=== PATIENT | female | born 1965 | race Caucasian/White ===

== ENCOUNTER 2017-11-29 08:00 | Outpatient (CLI) | payer OTHER | END 2017-11-29 08:01 | disposition home or self-care (01) | LOC: LAB.WCP 08:00 | PROVIDERS: ATTEND Physician Assistant Medical | DX: J02.9 Acute pharyngitis, unspecified (principal) | CPT/HCPCS: 87070 ==

== ENCOUNTER 2018-08-13 21:16 | Emergency (ER) | payer OTHER ==
[2018-08-13] MEDS ORDERED: MAGNESIUM SULFATE 2 GRAM 2 GM/50 ML BAG IV ONE (21:45)
[2018-08-13] MEDS ORDERED: METOPROLOL 5 MG/5 ML VIAL IVP STA (21:45)
--- NOTE | 2018-08-13 21:47 | ED Physician Documentation ---
PD HPI DYSPNEA - Stated complaint Stated Complaint: SOA/CP - Chief complaint Chief Complaint: Cardiac - History obtained from History obtained from: Patient, Family - History of Present Illness Timing - onset: Today Timing - onset during: Rest Timing - duration: Minutes Timing - details: Abrupt onset, Still present Inciting event(s): URI Improved by: Rest Worsened by: Coughing, Other (INSPIRATION) Associated symptoms: Fever, Cough, Wheezing, Chest pain / discomfort. No: Hemoptysis, Palpitations, Diaphoresis, Bilateral edema, Unilateral edema Similar symptoms before: Has not had sx before Recently seen: Not recently seen - Additional information Additional information: 53-year-old female with history of hypertension fibromyalgia and restless leg syndrome has developed a cough and congestion over the past week and today while she was sitting on the couch she had the sudden onset of shortness of breath and left-sided chest pain. She states that it feels like something is sitting on her chest. She states it is difficult to get a full deep breath secondary to this and that she was breathing well right before this happened. She did get up to go into her car and states that when she did this she did not have an increase in her symptoms. She does have an increase in her symptoms when she takes a deep breath. The patient states she has been noncompliant with her blood pressure medications for more than 2 months. Review of Systems Constitutional: reports: Fever, Chills, Myalgias, Fatigue. denies: Sweats Eyes: denies: Decreased vision Ears: denies: Ear pain Nose: reports: Rhinorrhea / runny nose, Congestion Throat: denies: Sore throat Cardiac: reports: Chest pain / pressure. 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 - Present Medications Home Medications: Ambulatory Orders Medication Instructions Recorded Confirmed RX: Cyclobenzaprine [Flexeril] 10 mg PO DAILY PRN 05/11/14 02/22/16 RX: Fluticasone [Flonase] 50 mcg NS BID 05/11/14 02/22/16 RX: Pramipexole [Mirapex] 0.125 mg PO QPM 05/11/14 02/22/16 RX: traZODone [Desyrel] 50 mg PO QPM 05/11/14 02/22/16 Cholecalciferol (Vitamin D3) 5,000 unit PO DAILY 02/22/16 02/22/16 [Vitamin D3] RX: Albuterol Sulf [Ventolin Hfa 1 - 2 puffs INH Q4HR PRN #1 inhaler 08/14/18 Inhaler] RX: predniSONE [Deltasone] 10 mg PO DAILY #26 tablet 08/14/18 - Allergies Allergies/Adverse Reactions: Allergies Allergy/AdvReac Type Severity Reaction Status Date / Time Tetracyclines Allergy Rash Verified 08/13/18 21:26 Penicillins AdvReac Intermediate Rash Verified 08/13/18 21:26 PD ED PE NORMAL - Vitals Vital signs reviewed: Yes (tachypneic) - General General: Alert and oriented X 3, Well developed/nourished - HEENT HEENT: Atraumatic, PERRL, EOMI, Ears normal, Other (dry mucous membranes ) - Neck Neck: Supple, no meningeal sign, No bony TTP - Cardiac Cardiac: No murmur, Other (tachy to 110) - Respiratory Respiratory: Other (tachypneic with diminished breath sounds and no rhonchi or rales) - Abdomen Abdomen: Soft, Non tender - Back Back: No CVA TTP, No spinal TTP - Derm Derm: Normal color, Warm and dry, No rash - Extremities Extremities: No deformity, No tenderness to palpate, No edema, No calf tenderness / cord - Neuro Neuro: Alert and oriented X 3, equipment oiler 2-12 intact, No motor deficit, No sensory deficit, Normal speech Eye Opening: Spontaneous Motor: Obeys Commands Verbal: Oriented GCS Score: 15 - Psych Psych: Normal mood, Normal affect Results - Vitals Vitals: Vital Signs - 24 hr 08/13/18 08/13/18 08/13/18 21:20 21:29 21:55 Heart Rate 99 75 Respiratory 30 H 21 Rate Blood Pressure 197/105 H 145/98 H O2 Saturation 100 95 08/13/18 08/13/18 08/14/18 23:04 23:36 00:11 Heart Rate 75 81 88 Respiratory 24 18 24 Rate Blood Pressure 151/110 H 160/108 H O2 Saturation 95 96 Oxygen O2 Source Room air - EKG (time done) 2123 Rate: Rate (enter#) (93) Rhythm: NSR Intervals: Prolonged QT (.514) QRS: LVH Ischemia: Q waves, Non specific changes (T wave in inferior leads are flat) Compare to prior EKG: Old EKG unavailable Computer interpretation: Agree with computer - Labs Labs: Laboratory Tests 08/13/18 08/13/18 08/13/18 21:23 21:23 21:23 WBC 13.7 H RBC 5.00 Hgb 15.4 Hct 43.3 MCV 86.5 MCH 30.7 MCHC 35.5 RDW 14.0 Plt Count 346 MPV 8.4 Neut # (Auto) Not Reportable Lymph # (Auto) Not Reportable Elk # (Auto) Not Reportable Eos # (Auto) Not Reportable Baso # (Auto) Not Reportable Absolute Nucleated RBC Not Reportable Total Counted 100 Band Neuts % (Manual) 0 Reactive Lymphs % (Man) 11 Abnorm Lymph % (Manual) 0 Nucleated RBC % Not Reportable Neutrophils # (Manual) 8.1 H Lymphocytes # (Manual) 4.8 H Monocytes # (Manual) 0.3 Eosinophils # (Manual) 0.5 Basophils # (Manual) 0.0 Differential Comment MANUAL DIFFERENTIAL Platelet Estimate NORMAL (130-450,000) Platelet Morphology NORMAL APPEARANCE RBC Morph Micro Appear NORMAL APPEARANCE Sodium 136 Potassium 3.2 L Chloride 99 L Carbon Dioxide 25 Anion Gap 12.0 BUN 8 Creatinine 0.8 Estimated GFR (MDRD) 75 L Glucose 98 Calcium 9.1 Total Bilirubin < 0.2 L AST 20 ALT 11 Alkaline Phosphatase 92 Troponin I < 0.04 Total Protein 7.7 Albumin 3.9 Globulin 3.8 Albumin/Globulin Ratio 1.0 Lipase 35 Urine Color Urine Clarity Urine pH Ur Specific Colbert Urine Protein Urine Glucose (UA) Urine Ketones Urine Occult Blood Urine Nitrite Urine Bilirubin Urine Urobilinogen Ur Leukocyte Esterase Ur Microscopic Review Urine Culture Comments 08/13/18 22:10 WBC RBC Hgb Hct MCV MCH MCHC RDW Plt Count MPV Neut # (Auto) Lymph # (Auto) Elk # (Auto) Eos # (Auto) Baso # (Auto) Absolute Nucleated RBC Total Counted Band Neuts % (Manual) Reactive Lymphs % (Man) Abnorm Lymph % (Manual) Nucleated RBC % Neutrophils # (Manual) Lymphocytes # (Manual) Monocytes # (Manual) Eosinophils # (Manual) Basophils # (Manual) Differential Comment Platelet Estimate Platelet Morphology RBC Morph Micro Appear Sodium Potassium Chloride Carbon Dioxide Anion Gap BUN Creatinine Estimated GFR (MDRD) Glucose Calcium Total Bilirubin AST ALT Alkaline Phosphatase Troponin I Total Protein Albumin Globulin Albumin/Globulin Ratio Lipase Urine Color YELLOW Urine Clarity CLEAR Urine pH 7.0 Ur Specific Colbert 1.010 Urine Protein NEGATIVE Urine Glucose (UA) NEGATIVE Urine Ketones NEGATIVE Urine Occult Blood NEGATIVE Urine Nitrite NEGATIVE Urine Bilirubin NEGATIVE Urine Urobilinogen 0.2 (NORMAL) Ur Leukocyte Esterase NEGATIVE Ur Microscopic Review NOT INDICATED Urine Culture Comments NOT INDICATED - Rads (name of study) CT chest angio PE Radiology: Prelim report reviewed (Impression: Normal pulmonary CT angiogram. No pulmonary emboli.), EMP read indepedently, See rad report Procedures - IVC sono (time) 2132 Bedside IVC sono: IVC measures (cm) (1.40), IVC collapsed c insp (cm) (0.65), Euvolemia PD MEDICAL DECISION MAKING - ED course Complexity details: reviewed old records, reviewed results, re-evaluated patient, considered differential, d/w patient, d/w family ED course: 53-year-old female with a prior history of bronchitis has developed cough over the past week and tonight she had a dramatic episode of chest pain associated with shortness of breath. She arrived to the emergency department tachypneic and teary-eyed. She had significant anxiety when she arrived to the emergency department. She improved dramatically with treatment and at discharge she was breathing comfortably without pain. She did receive dexamethasone and a duo-neb treatment in the ED. I did not find evidence of infection on exam. Departure - Departure Disposition: 01 Home, Self Care Clinical Impression: Asthmatic bronchitis Qualifiers: Asthma severity: mild Asthma persistence: intermittent Asthma complication type: with acute exacerbation Qualified Code(s): J45.21 - Mild intermittent asthma with (acute) exacerbation Condition: Stable Instructions: ED Bronchitis Asthmatic Follow-Up: Lexi Clark PA-C [Primary Care Provider] - Prescriptions: RX: Albuterol Sulf [Ventolin Hfa Inhaler] 1 - 2 puffs INH Q4HR PRN #1 inhaler PRN Reason: Shortness Of Air/Wheezing RX: predniSONE [Deltasone] 10 mg PO DAILY #26 tablet Comments: Today in the Emergency Department your blood pressure was elevated. This can happen from the stress of the visit itself, from a current illness or circumstance or from uncontrolled hypertension. If you take blood pressure medications take your usual mediations, have your blood pressure re-checked in an appropriate setting and follow up any elevation with your primary care doctor. Discharge Date/Time: 08/14/18 00:24
[2018-08-13 21:51] LABS: BASOPHILS % (AUTO) 1.2 %; EOSINOPHILS % (AUTO) 1.8 %; HGB - HEMOGLOBIN 15.4 g/dL (12.0-16.0); LYMPHOCYTES % (AUTO) 41.2 %; MEAN CORPUSCULAR HEMOGLOBIN 30.7 pg (27.0-31.0); MEAN CORPUSCULAR HGB CONC 35.5 g/dL (32.0-36.0); MEAN CORPUSCULAR VOLUME 86.5 fL (81.0-99.0); MEAN PLATELET VOLUME 8.4 fL (7.9-10.8); MONOCYTES % (AUTO) 7.6 %; NEUTROPHILS % (AUTO) 48.2 %; PLT - PLATELET COUNT 346 10^3/uL (130-450); WHITE BLOOD COUNT 13.7 x10^3/uL (4.8-10.8)
[2018-08-13 21:54] LABS: ABNORMAL LYMPHS % (MANUAL) 0 %; BAND NEUTROPHILS % (MANUAL) 0 %
[2018-08-13 22:00] LABS: ALBUMIN 3.9 g/dL (3.2-5.5); ALKALINE PHOSPHATASE 92 IU/L (42-121); ALT ALANINE AMINOTRANSFERASE 11 IU/L (10-60); AST ASPARTATE AMINOTRANSFERASE 20 IU/L (10-42); BILIRUBIN,TOTAL < 0.2 mg/dL (0.2-1.0); BUN - BLOOD UREA NITROGEN 8 mg/dL (6-20); CALCIUM 9.1 mg/dL (8.5-10.3); CARBON DIOXIDE - CO2 25 mmol/L (21-32); CHLORIDE 99 mmol/L (101-111); CREATININE 0.8 mg/dL (0.4-1.0); GFR - MDRD 75 (>89); GLUCOSE 98 mg/dL (70-100); LIPASE 35 U/L (22-51); SODIUM 136 mmol/L (135-145); TOTAL PROTEIN 7.7 g/dL (6.7-8.2)
[2018-08-13] MEDS ORDERED: IOPAMIDOL-300 100 ML VIAL ONE (22:04)
[2018-08-13 22:25] LABS: BILIRUBIN,URINE NEGATIVE (NEGATIVE); GLUCOSE, URINE (UA) NEGATIVE (NEGATIVE); KETONES,URINE (UA) NEGATIVE (NEGATIVE); LEUKOCYTE ESTERASE, URINE NEGATIVE (NEGATIVE); NITRITE,URINE NEGATIVE (NEGATIVE); OCCULT BLOOD,URINE NEGATIVE (NEGATIVE); PROTEIN,URINE NEGATIVE (NEGATIVE); UROBILINOGEN,URINE 0.2 (NORMAL) E.U./dL (NORMAL)
[2018-08-13 22:29] LABS: EOSINOPHILS # (MANUAL) 0.5 10^3/uL (0-0.7); LYMPHOCYTES # (MANUAL) 4.8 10^3/uL (1.5-3.5); LYMPHOCYTES % (MANUAL) 24 %; MONOCYTES # (MANUAL) 0.3 10^3/uL (0.0-1.0); NEUTROPHILS # (MANUAL) 8.1 10^3/uL (1.5-6.6); NEUTROPHILS % (MANUAL) 59 %
[2018-08-13 22:31] LABS: DIFFERENTIAL COMMENT MANUAL DIFFERENTIAL; PLATELET ESTIMATE, MANUAL NORMAL (130-450,000) (NORMAL); PLATELET MORPHOLOGY NORMAL APPEARANCE (NORMAL); RBC MORPHOLOGY (MULTIPLE) NORMAL APPEARANCE (NORMAL)
[2018-08-13 22:32] LABS: CLARITY,URINE CLEAR (CLEAR)
[2018-08-13] MEDS ORDERED: IOPAMIDOL-300 100 ML VIAL IVP ONE (22:37)
--- NOTE | 2018-08-13 22:55 | CT Report ---
Reason: chest pain soa Procedure Date: 08/13/2018 Accession Number: [id number] / [id number] Procedure: CT - Chest Angio (PE) CPT Code: FULL RESULT: EXAM: CT ANGIOGRAM CHEST EXAM DATE: 08/13/2018 10:34 PM. CLINICAL HISTORY: Chest pain soa. COMPARISON: None. TECHNIQUE: Routine helical imaging was performed through the chest in the pulmonary arterial phase. IV Contrast: 80 ML ISOVUE 300. Reconstructions: Coronal 3-D MIP reconstructions.Sagittal and coronal. In accordance with CT protocol optimization, one or more of the following dose reduction techniques were utilized for this exam: automated exposure control, adjustment of mA and/or KV based on patient size, or use of iterative reconstructive technique. FINDINGS: Pulmonary Arteries: Diagnostic quality: Adequate through the segmental arteries. No evidence for acute or chronic pulmonary emboli. RV/LV is within normal limits. There is no interventricular septal bowing. There is no reflux of contrast material in the IVC. Lungs/Pleura: No consolidation, nodules, or edema. No effusions or pneumothorax. Mediastinum: Normal. No cardiac enlargement or adenopathy. Thoracic Aorta: Unremarkable. Upper Abdomen: Unremarkable. Other: None. IMPRESSION: Normal pulmonary CT angiogram. No pulmonary emboli. RADIA
[2018-08-13] MEDS ORDERED: POTASSIUM BICARB 25 MEQ TABLET PO STA (23:26)
[2018-08-13] MEDS ORDERED: DEXAMETHASONE 10 MG/ML VIAL PO STA (23:27)
[2018-08-13] MEDS ORDERED: IPRATROPIUM/ALBUTEROL 3 ML NEB INH STA (23:27)
[2018-08-13] MEDS ORDERED: CHERRY SYRUP 10 ML UDC PO ONE (23:31)
[2018-08-14 00:12] VITALS: BP 160/108
== END 2018-08-14 00:24 | disposition home or self-care (01) ==
LOC: ED 21:16
DX: J45.21 Mild intermittent asthma with (acute) exacerbation (principal); Z91.14 Patient's other noncompliance with medication regimen; F41.9 Anxiety disorder, unspecified; R06.82 Tachypnea, not elsewhere classified; I10 Essential (primary) hypertension
CPT/HCPCS: 36415; 71275; 80053; 81003; 83690; 84484; 85025; 93005; 94640; 96365; 96366; 99283; A9270; Q9967; 81001; 87086; 94664

== ENCOUNTER 2019-03-06 19:34 | Outpatient (CLI) | payer MEDICAID, OTHER | END 2019-03-06 19:35 | disposition critical access hospital (66) | LOC: EMS 19:34 | PROVIDERS: ATTEND Surgery | DX: R55 Syncope and collapse (principal); R41.82 Altered mental status, unspecified; R61 Generalized hyperhidrosis; R42 Dizziness and giddiness; R53.1 Weakness; R11.2 Nausea with vomiting, unspecified ==

== ENCOUNTER 2019-03-06 19:51 | Emergency (ER) | payer SELFPAY ==
--- NOTE | 2019-03-06 20:23 | ED Physician Documentation ---
PD HPI SYNCOPE - Stated complaint Stated Complaint: WEAKNESS, N/V, SYNCOPE - Chief complaint Chief Complaint: Neuro - History obtained from History obtained from: Patient - History of Present Illness Witnessed: Witnessed Timing - onset: How many hours ago (less than 1 hour MONITORING COORDINATOR), Today Duration: Minutes Preceding symptoms: Diaphoresis, Light headed. No: Headache, Chest pain Associated symptoms: Diaphoresis, Nausea / vomiting. No: Seizure, Incontinant of urine, Incontinant of stool, Headache, Vision changes, Chest pain, Palpitations, Dyspnea Injury occurred: None Pain level max: 0 Pain level now: 0 Treatment MONITORING COORDINATOR: Fluids (en route by EMS) Similar symptoms before: Other (similar symptoms last Fall without specific diagnosis) Recently seen: Not recently seen - Additional information Additional information: while seated at dinner tonight, patient became lightheaded, diaphoretic, had generalized weakness and felt like she was going to pass out. Patient told her daughter, also seated at the table, that she felt she was going to pass out. Patient says she did not "completely go out" (per patient), but daughter describes period of unresponsiveness (not verbally responding) and weakness to the point of having to be held up to prevent her from falling out of chair. By the time of this evaluation, she is asymptomatic. Review of Systems Constitutional: reports: Sweats. denies: Fever, Chills Eyes: reports: Reviewed and negative Ears: reports: Reviewed and negative Cardiac: reports: Reviewed and negative Respiratory: reports: Reviewed and negative GI: reports: Nausea, Vomiting. denies: Abdominal Pain, Constipation, Diarrhea : denies: Dysuria, Frequency Musculoskeletal: reports: Reviewed and negative Neurologic: reports: Generalized weakness (resolved (was prior to syncope)), Syncope. 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 - Present Medications Home Medications: Ambulatory Orders Medication Instructions Recorded Confirmed Cyclobenzaprine [Flexeril] 10 mg PO DAILY PRN 05/11/14 02/22/16 Fluticasone [Flonase] 50 mcg NS BID 05/11/14 02/22/16 Pramipexole [Mirapex] 0.125 mg PO QPM 05/11/14 02/22/16 traZODone [Desyrel] 50 mg PO QPM 05/11/14 02/22/16 Cholecalciferol (Vitamin D3) 5,000 unit PO DAILY 02/22/16 02/22/16 [Vitamin D3] Albuterol Sulf [Ventolin Hfa 1 - 2 puffs INH Q4HR PRN #1 inhaler 08/14/18 Inhaler] predniSONE [Deltasone] 10 mg PO DAILY #26 tablet 08/14/18 - Allergies Allergies/Adverse Reactions: Allergies Allergy/AdvReac Type Severity Reaction Status Date / Time Tetracyclines Allergy Rash Verified 03/06/19 19:58 - Social History Does the pt smoke?: Yes Smoking Status: Current every day smoker Does the pt drink ETOH?: Yes Does the pt have substance abuse?: No PD ED PE NORMAL - Vitals Vital signs reviewed: Yes - General General: Alert and oriented X 3, No acute distress, Well developed/nourished - HEENT HEENT: PERRL, EOMI, Moist mucous membranes - Neck Neck: Supple, no meningeal sign - Cardiac Cardiac: RRR, No murmur, No gallop, No rub - Respiratory Respiratory: No respiratory distress, Clear bilaterally - Abdomen Abdomen: Soft, Non tender - Derm Derm: Normal color, Warm and dry - Extremities Extremities: No edema - Neuro Neuro: Alert and oriented X 3, laboratory geneticist 2-12 intact, No motor deficit, No sensory deficit, Normal speech Eye Opening: Spontaneous Motor: Obeys Commands Verbal: Oriented GCS Score: 15 Results - Vitals Vitals: Vital Signs - 24 hr 03/06/19 03/06/19 03/06/19 19:58 20:03 21:45 Temperature 36.7 C Heart Rate 95 95 80 Respiratory 16 18 16 Rate Blood Pressure 126/71 125/71 144/89 H O2 Saturation 93 93 97 Oxygen O2 Source Room air - EKG (time done) No standard instances Rate: Rate (enter#) (82) Rhythm: NSR [place]: Normal Intervals: Prolonged QT QRS: LVH Ischemia: Q waves (II, III, aVF) Compare to prior EKG: Unchanged from prior EKG (08/13/18) - Labs Labs: Laboratory Tests 05/17/19 05/17/19 05/17/19 20:35 20:35 20:35 WBC 17.6 H RBC 4.56 Hgb 13.3 Hct 39.7 MCV 87.2 MCH 29.1 MCHC 33.4 RDW 13.9 Plt Count 370 MPV 8.3 Neut # (Auto) 13.4 H Lymph # (Auto) 2.8 [place]phill # (Auto) 1.3 H Eos # (Auto) 0.1 Baso # (Auto) 0.1 Absolute Nucleated RBC 0.01 Nucleated RBC % 0.1 Sodium 136 Potassium 3.2 L Chloride 96 L Carbon Dioxide 28 Anion Gap 12.0 BUN 9 Creatinine 1.3 H Estimated GFR (MDRD) 43 L Glucose 150 H Calcium 8.6 Troponin I < 0.04 - Rads (name of study) chest xray Radiology: Prelim report reviewed, See rad report PD MEDICAL DECISION MAKING - ED course Complexity details: reviewed results, re-evaluated patient, considered differential, d/w patient ED course: On reevaluation after tests resulted, patient remains asymptomatic. Results d/w patient and instructed to f/u with PMD. Departure - Departure Disposition: 01 Home, Self Care Clinical Impression: Syncope, Hypokalemia Condition: Good Instructions: ED Potassium Deficiency, ED Fainting Unkn Cause Comments: Your white blood cell count, creatinine, and blood sugar were all slightly elevated tonight, and your potassium was a little low. None of these findings are alarming, but you should discuss these findings with your doctor, as they might recommend further testing regarding these abnormalities. Discharge Date/Time: 03/06/19 21:45
[2019-03-06 20:43] LABS: BASOPHILS # (AUTO) 0.1 10^3/uL (0.0-0.1); BASOPHILS % (AUTO) 0.6 %; EOSINOPHILS # (AUTO) 0.1 10^3/uL (0.0-0.7); EOSINOPHILS % (AUTO) 0.5 %; HGB - HEMOGLOBIN 13.3 g/dL (12.0-16.0); LYMPHOCYTES # (AUTO) 2.8 10^3/uL (1.5-3.5); LYMPHOCYTES % (AUTO) 15.9 %; MEAN CORPUSCULAR HEMOGLOBIN 29.1 pg (27.0-31.0); MEAN CORPUSCULAR HGB CONC 33.4 g/dL (32.0-36.0); MEAN CORPUSCULAR VOLUME 87.2 fL (81.0-99.0); MEAN PLATELET VOLUME 8.3 fL (7.9-10.8); MONOCYTES # (AUTO) 1.3 10^3/uL (0.0-1.0); MONOCYTES % (AUTO) 7.2 %; NEUTROPHILS # (AUTO) 13.4 10^3/uL (1.5-6.6); NEUTROPHILS % (AUTO) 75.8 %; PLT - PLATELET COUNT 370 10^3/uL (130-450); RED BLOOD COUNT 4.56 10^6/uL (4.20-5.40); RED CELL DISTRIBUTION WIDTH 13.9 % (12.0-15.0); WHITE BLOOD COUNT 17.6 x10^3/uL (4.8-10.8)
[2019-03-06 20:51] LABS: CALCIUM 8.6 mg/dL (8.5-10.3); CREATININE 1.3 mg/dL (0.4-1.0)
--- NOTE | 2019-03-06 20:53 | XRAY Report ---
Reason: syncope Procedure Date: 03/06/2019 Accession Number: [id number] / [id number] Procedure: XR - Chest 2 View X-Ray CPT Code: 56652 FULL RESULT: EXAM: CHEST RADIOGRAPHY EXAM DATE: 03/06/2019 08:47 PM. CLINICAL HISTORY: Syncope. COMPARISON: 11/27/2011 7:05 AM. TECHNIQUE: 2 views. FINDINGS: Lungs/Pleura: Mild left basilar atelectasis and scarring. No focal opacities evident. No pleural effusion. No pneumothorax. Normal volumes. Mediastinum: Heart and mediastinal contours are unremarkable. Other: None. IMPRESSION: Normal 2-view chest radiography. RADIA
[2019-03-06] MEDS ORDERED: POTASSIUM CHLORIDE 20 MEQ TABLET PO STA (21:28)
[2019-03-06 21:47] VITALS: BP 144/89
== END 2019-03-06 21:45 | disposition home or self-care (01) ==
LOC: EDUNIT# → ED 19:51
DX: R55 Syncope and collapse (principal); E87.6 Hypokalemia; I45.81 Long QT syndrome; I10 Essential (primary) hypertension; F17.200 Nicotine dependence, unspecified, uncomplicated
CPT/HCPCS: 36415; 71046; 80048; 84484; 85025; 93005; 99283; 99284; A9270

== ENCOUNTER 2019-03-25 09:04 | Outpatient (CLI) | payer MEDICAID ==
[~2019-03-25 09:04] MED LIST: ALBUTEROL NEB 2.5 MG/3 ML INH SCH
== END 2019-03-25 09:05 | disposition home or self-care (01) ==
LOC: RT 09:04
DX: R06.02 Shortness of breath (principal)
CPT/HCPCS: 94060; 94729

== ENCOUNTER 2019-04-27 12:15 | Outpatient (CLI) | payer MEDICAID ==
[2019-04-27] MEDS ORDERED: IOVERSOL 320 100 ML VIAL IVP ONE ×2 (12:41→15:50)
--- NOTE | 2019-04-27 14:05 | CT Report ---
Reason: LUNG MASS, SMOKER Procedure Date: 04/27/2019 Accession Number: [id number] / [id number] Procedure: CT - CHEST W CPT Code: FULL RESULT: EXAM: CT CHEST EXAM DATE: 04/27/2019 01:02 PM. CLINICAL HISTORY: LUNG MASS, SMOKER. COMPARISONS: CHEST ANGIO 08/13/2018 10:21 PM CHEST 2 VIEW 03/06/2019 8:41 PM. TECHNIQUE: Routine helical CT imaging was performed through the chest. IV contrast: 80 cc Optiray 320. Reconstructions: Coronal and sagittal. In accordance with CT protocol optimization, one or more of the following dose reduction techniques were utilized for carotids are good at this exam: automated exposure control, adjustment of mA and/or KV based on patient size, or use of iterative reconstructive technique. FINDINGS: Lungs/Pleura: There is no consolidation or effusion. No suspicious noncalcified nodules are seen. There is no evidence of subpleural reticulation or architectural distortion. No central airway abnormalities. No pneumothorax. Mediastinum: Heart size is within normal limits. There are no enlarged axillary, supraclavicular, mediastinal, or hilar lymph nodes. Bones: Unremarkable. Visualized Abdomen: There is a heterogeneous hypodense mass measuring 2.5 cm in diameter within segment 6 of the liver (image 60 series 4). The visualized portions of the upper abdominal organs demonstrate no acute abnormalities. Other: None. IMPRESSION: 1. No acute or chronic pulmonary CT process. 2. Normal heart size. No enlarged thoracic lymph nodes. 3. There is a 2.5 cm nodular hypodensity within segment 6 of the liver. There is probably represents a hemangioma. This could be confirmed with nonemergent hepatic MRI as indicated. RADIA
== END 2019-04-27 12:16 | disposition home or self-care (01) ==
LOC: DI 12:15
PROVIDERS: ATTEND Physician Assistant
DX: F17.200 Nicotine dependence, unspecified, uncomplicated (principal); R91.8 Other nonspecific abnormal finding of lung field; R16.0 Hepatomegaly, not elsewhere classified
CPT/HCPCS: 71260; Q9967

== ENCOUNTER 2019-05-07 13:09 | Outpatient (CLI) | payer MEDICAID ==
[2019-05-07] MEDS ORDERED: GADOBUTROL 10 MMOL/10 ML VIAL IVP ONE (14:46)
--- NOTE | 2019-05-08 05:41 | MRI Report ---
Reason: HEMANGIOMA, HEPATIC Procedure Date: 05/07/2019 Accession Number: [id number] / [id number] Procedure: MRI - Abdomen W/WO CPT Code: FULL RESULT: EXAM: MR ABDOMEN WITH AND WITHOUT CONTRAST (MR LIVER) EXAM DATE: 05/07/2019 02:48 PM. CLINICAL HISTORY: Liver lesion seen on the prior exam, further assessment and characterization. COMPARISON: CHEST W/ 04/27/2019 12:55 PM, CHEST ANGIO 08/13/2018 10:21 PM. TECHNIQUE: Multiplanar breath-hold T1, T2, and DWI sequences obtained through the abdomen on an MR scanner. Images obtained before and after administration of 7 mL Gadavist intravenous contrast. Multiphase postcontrast images obtained of the liver and abdomen. FINDINGS: ABDOMEN: Liver: The recent prior CT demonstrated abnormality within the posterior portion of the liver is again seen, having a lobulated T2 hyperintense appearance. This is within segment-7, measuring 2.6 x 2.1 cm (image 196 series 301). Enhancement characteristics are consistent with that of a cavernous hemangioma. There is an additional 8 mm T2 hyperintense focus within the posterolateral subcapsular portion of liver segment-7 (image 24 series 501). This lesion as well represents a small cavernous hemangioma. There is an adjacent hepatic to portal venous shunt within the subcapsular aspect of liver segment-7 (image 67 series 1301). There are no suspicious appearing hepatic abnormalities noted at this time. Liver is morphologically normal. Stomach/Distal Esophagus: No significant abnormality. Gallbladder: No significant abnormality. Bile Ducts: No significant abnormality. Pancreas: No significant abnormality. Spleen: No significant abnormality. Kidneys: No suspicious solid appearing lesion. No hydronephrosis. Adrenals: No significant abnormality. Bowel: No obstruction. Average fecal residual. Lymph Nodes: No pathologically enlarged nodes. Vasculature: Normal caliber aorta. Fluid: No significant free fluid. Abdominal Wall: No significant abnormality. Other: No significant abnormality. BONES: No suspicious bony lesions. LOWER CHEST: No significant consolidation or effusion. IMPRESSION: 1. The recent CT demonstrated abnormality corresponds to a cavernous hemangioma within liver segment-7, measuring 2.6 x 2.1 cm. 2. Adjacent additional 8 mm cavernous hemangioma within the posterolateral portion of liver segment-7. RADIA
== END 2019-05-07 13:10 | disposition home or self-care (01) ==
LOC: DI 13:09
PROVIDERS: ATTEND Physician Assistant
DX: D18.03 Hemangioma of intra-abdominal structures (principal)
CPT/HCPCS: 74183; A9585

== ENCOUNTER 2021-01-12 16:56 | Outpatient (CLI) | payer MEDICAID ==
[2021-01-12 20:48] LABS: BILIRUBIN,URINE NEGATIVE (NEGATIVE); CLARITY,URINE CLEAR (CLEAR); GLUCOSE, URINE (UA) NEGATIVE (NEGATIVE); KETONES,URINE (UA) NEGATIVE (NEGATIVE); LEUKOCYTE ESTERASE, URINE NEGATIVE (NEGATIVE); NITRITE,URINE NEGATIVE (NEGATIVE); OCCULT BLOOD,URINE NEGATIVE (NEGATIVE); PROTEIN,URINE NEGATIVE (NEGATIVE); UROBILINOGEN,URINE 0.2 (NORMAL) E.U./dL (NORMAL)
[2021-01-12 20:54] LABS: BACTERIA,URINE None Seen /HPF (None Seen); RBC,URINE None Seen /HPF (0-5); SQUAMOUS EPITHELIAL CELL,UR RARE Squamous (<= Few); WBC,URINE 0-3 /HPF (0-5)
== END 2021-01-12 23:59 | disposition home or self-care (01) ==
LOC: LAB.R 16:56
PROVIDERS: ATTEND Physician Assistant Medical
DX: R31.9 Hematuria, unspecified (principal)
CPT/HCPCS: 81001; 87086

== ENCOUNTER 2021-03-24 08:00 | Outpatient (CLI) | payer MEDICAID ==
[2021-03-24 12:27] LABS: BASOPHILS # (AUTO) 0.1 10^3/uL (0.0-0.1); BASOPHILS % (AUTO) 0.6 %; EOSINOPHILS # (AUTO) 0.2 10^3/uL (0.0-0.7); EOSINOPHILS % (AUTO) 1.3 %; HCT - HEMATOCRIT 41.1 % (37.0-47.0); HGB - HEMOGLOBIN 13.7 g/dL (12.0-16.0); LYMPHOCYTES # (AUTO) 5.3 10^3/uL (1.5-3.5); LYMPHOCYTES % (AUTO) 43.6 %; MEAN CORPUSCULAR HEMOGLOBIN 29.8 pg (27.0-31.0); MEAN CORPUSCULAR HGB CONC 33.3 g/dL (32.0-36.0); MEAN CORPUSCULAR VOLUME 89.5 fL (81.0-99.0); MEAN PLATELET VOLUME 10.7 fL (7.9-10.8); MONOCYTES # (AUTO) 1.1 10^3/uL (0.0-1.0); MONOCYTES % (AUTO) 8.8 %; NEUTROPHILS # (AUTO) 5.6 10^3/uL (1.5-6.6); NEUTROPHILS % (AUTO) 45.5 %; PLT - PLATELET COUNT 402 10^3/uL (130-450); RED BLOOD COUNT 4.59 10^6/uL (4.20-5.40); RED CELL DISTRIBUTION WIDTH 13.4 % (12.0-15.0); WHITE BLOOD COUNT 12.2 x10^3/uL (4.8-10.8)
[2021-03-24 12:34] LABS: SLIDE REVIEW? Indicated
[2021-03-24 12:43] LABS: ALBUMIN/GLOBULIN RATIO 1.3 (1.0-2.2); ALKALINE PHOSPHATASE 64 IU/L (42-121); ALT ALANINE AMINOTRANSFERASE 11 IU/L (10-60); AST ASPARTATE AMINOTRANSFERASE 18 IU/L (10-42); BILIRUBIN,TOTAL 0.5 mg/dL (0.2-1.0); BUN - BLOOD UREA NITROGEN 8 mg/dL (6-20); CALCIUM 9.4 mg/dL (8.5-10.3); CARBON DIOXIDE - CO2 30 mmol/L (21-32); CHLORIDE 96 mmol/L (101-111); CHOL/HDL RATIO 7.9 (<4.4); CHOLESTEROL 261 mg/dL; CREATININE 0.8 mg/dL (0.4-1.0); GFR - MDRD 74 (>89); GLUCOSE 99 mg/dL (70-100); HDL CHOLESTEROL 33 mg/dL; LDL CHOLESTEROL,CALCULATED 166 mg/dL; POTASSIUM 3.6 mmol/L (3.5-5.0); SODIUM 137 mmol/L (135-145); TOTAL PROTEIN 7.1 g/dL (6.7-8.2); TRIGLYCERIDES 310 mg/dL; VLDL CHOLESTEROL 62 mg/dL
[2021-03-24 12:50] LABS: THYROID STIMULATING HORMONE 1.02 uIU/mL (0.34-5.60)
[2021-03-24 13:20] LABS: DIFFERENTIAL COMMENT MANUAL=AUTO DIFF; PLATELET ESTIMATE, MANUAL NORMAL (130-450,000) (NORMAL); PLATELET MORPHOLOGY NORMAL APPEARANCE (NORMAL); RBC MORPHOLOGY (MULTIPLE) NORMAL APPEARANCE (NORMAL); WBC MORPHOLOGY (MULTIPLE) NORMAL APPEARANCE (NORMAL)
== END 2021-03-24 23:59 | disposition home or self-care (01) ==
LOC: LAB.WCP 08:00
PROVIDERS: ATTEND Physician Assistant Medical
DX: Z00.00 Encounter for general adult medical examination without abnormal findings (principal); R31.9 Hematuria, unspecified
CPT/HCPCS: 36415; 80053; 80061; 81001; 83721; 84443; 85025; 87086

== ENCOUNTER 2022-07-24 10:49 | Outpatient (CLI) | payer MEDICARE, MEDICAID ==
--- NOTE | 2022-07-24 17:44 | DEXA Report ---
PROCEDURE: Dexa Spine and/or Hip INDICATIONS: POST MENOPAUSAL TECHNIQUE: Dual energy x-ray absorptiometry (DXA) was performed on a Cardoz System. Regions measur ed are the AP Spine, femoral neck, and if needed forearm. COMPARISON: 04/27/2016. FINDINGS: Lumbar Spine: Bone Mineral Density 0.922 g/cm/cm,T score -2.2. There is interval 4.3% decrease in total lumbar s pine bone mineral density. Left Hip: Bone Mineral Density 0.709 g/cm/cm,T score -2.4. There is interval 8.4% decrease in left total hip b one mineral density. Left Femoral Neck: Bone Mineral Density 0.678 g/cm/cm, T score -2.6. (T score greater or equal to -1.0: NORMAL) (T score from -1.1 to -2.4: OSTEOPENIA) (T score less than or equal to -2.5 to: OSTEOPOROSIS) Impression: Osteoporosis. Patients with diagnosis of osteoporosis or osteopenia should have regular bone mineral density assess ment. For those eligible for Medicare, routine testing is allowed once every 2 years. Testing frequ ency can be increased for patients who have rapidly progressing disease or for those who are receivin g medical therapy to restore bone mass. Reviewed by: Eros Silveira MD on 07/24/2022 5:43 PM PDT Approved by: Eros Silveira MD on 07/24/2022 5:43 PM PDT Station ID: [id number]
== END 2022-07-24 10:50 | disposition home or self-care (01) ==
LOC: DI 10:49
PROVIDERS: ATTEND Physician Assistant
DX: M81.0 Age-related osteoporosis without current pathological fracture (principal)

== ENCOUNTER 2022-07-24 10:53 | Outpatient (CLI) | payer MEDICARE, MEDICAID ==
--- NOTE | 2022-07-24 16:35 | XRAY Report ---
PROCEDURE: Knee 3 View BILAT INDICATIONS: KNEE PAIN, BILATERAL TECHNIQUE: 3 views of each knee were acquired. COMPARISON: None. FINDINGS: Bones: No acute fractures or dislocations. No suspicious bony lesions. There is mild narrowing of the medial and lateral femorotibial compartment joint spaces. Soft tissues: No joint effusion. No suspicious soft tissue calcifications. IMPRESSION: Mild bilateral osteoarthrosis. Reviewed by: William Kuo MD on 07/24/2022 4:34 PM PDT Approved by: William Kuo MD on 07/24/2022 4:34 PM PDT Station ID: [id number]
== END 2022-07-24 10:54 | disposition home or self-care (01) ==
LOC: DI 10:53
PROVIDERS: ATTEND Physician Assistant
DX: M17.0 Bilateral primary osteoarthritis of knee (principal)

== ENCOUNTER 2022-08-02 08:44 | Outpatient (CLI) | payer MEDICARE, MEDICAID ==
[2022-08-02 09:06] LABS: BASOPHILS # (AUTO) 0.1 10^3/uL (0.0-0.1); EOSINOPHILS # (AUTO) 0.1 10^3/uL (0.0-0.7); EOSINOPHILS % (AUTO) 1.4 %; HCT - HEMATOCRIT 41.9 % (37.0-47.0); HGB - HEMOGLOBIN 13.6 g/dL (12.0-16.0); LYMPHOCYTES # (AUTO) 3.5 10^3/uL (1.5-3.5); LYMPHOCYTES % (AUTO) 43.6 %; MEAN CORPUSCULAR HGB CONC 32.5 g/dL (32.0-36.0); MEAN CORPUSCULAR VOLUME 89.3 fL (81.0-99.0); MEAN PLATELET VOLUME 10.1 fL (7.9-10.8); MONOCYTES # (AUTO) 0.7 10^3/uL (0.0-1.0); MONOCYTES % (AUTO) 8.4 %; NEUTROPHILS # (AUTO) 3.6 10^3/uL (1.5-6.6); NEUTROPHILS % (AUTO) 45.3 %; PLT - PLATELET COUNT 320 10^3/uL (130-450); RED BLOOD COUNT 4.69 10^6/uL (4.20-5.40); RED CELL DISTRIBUTION WIDTH 13.5 % (12.0-15.0)
[2022-08-02 09:24] LABS: ALBUMIN 4.1 g/dL (3.2-5.5); ALBUMIN/GLOBULIN RATIO 1.2 (1.0-2.2); ALKALINE PHOSPHATASE 62 IU/L (42-121); ALT ALANINE AMINOTRANSFERASE 13 IU/L (10-60); AST ASPARTATE AMINOTRANSFERASE 19 IU/L (10-42); BILIRUBIN,TOTAL 0.6 mg/dL (0.2-1.0); BUN - BLOOD UREA NITROGEN 9 mg/dL (6-20); CALCIUM 9.4 mg/dL (8.5-10.3); CARBON DIOXIDE - CO2 32 mmol/L (21-32); CHLORIDE 99 mmol/L (101-111); CHOL/HDL RATIO 5.5 (<4.4); CHOLESTEROL 230 mg/dL; GFR - MDRD 57 (>89); GLUCOSE 109 mg/dL (70-100); HDL CHOLESTEROL 42 mg/dL; LDL CHOLESTEROL,CALCULATED 165 mg/dL; LDL/HDL RATIO 3.9 (<4.4); POTASSIUM 3.4 mmol/L (3.5-5.0); SODIUM 140 mmol/L (135-145); TOTAL PROTEIN 7.5 g/dL (6.7-8.2); TRIGLYCERIDES 117 mg/dL; VLDL CHOLESTEROL 23 mg/dL
[2022-08-02 09:33] LABS: THYROID STIMULATING HORMONE 1.44 uIU/mL (0.34-5.60)
[2022-08-02 11:50] LABS: ESTIMATED AVERAGE GLUCOSE 111 mg/dL (70-100); HEMOGLOBIN A1c% 5.5 % (4.27-6.07)
== END 2022-08-02 08:45 | disposition home or self-care (01) ==
LOC: LAB 08:44
PROVIDERS: ATTEND Physician Assistant Medical
DX: E78.5 Hyperlipidemia, unspecified (principal); I10 Essential (primary) hypertension; M81.0 Age-related osteoporosis without current pathological fracture; E55.9 Vitamin D deficiency, unspecified; R73.9 Hyperglycemia, unspecified
CPT/HCPCS: 36415; 80053; 80061; 82306; 83036; 83721; 84443; 85025

== ENCOUNTER 2023-05-19 15:35 | Outpatient (CLI) | payer MEDICARE, MEDICAID | END 2023-05-19 23:59 | disposition critical access hospital (66) | LOC: EMS 15:35 | DX: R55 Syncope and collapse (principal); R53.83 Other fatigue | CPT/HCPCS: A0425; A0429 ==

== ENCOUNTER 2023-05-19 15:55 | Emergency (ER) | payer MEDICARE, MEDICAID ==
[2023-05-19] MEDS ORDERED: SODIUM CHLORIDE 0.9% 1,000 ML IV STA (16:01)
[2023-05-19 16:16] VITALS: BP 157/88
[2023-05-19 16:43] LABS: BASOPHILS % (AUTO) 0.5 %; EOSINOPHILS % (AUTO) 0.4 %; HCT - HEMATOCRIT 43.7 % (37.0-47.0); HGB - HEMOGLOBIN 14.1 g/dL (12.0-16.0); LYMPHOCYTES % (AUTO) 14.4 %; MEAN CORPUSCULAR HEMOGLOBIN 29.3 pg (27.0-31.0); MEAN CORPUSCULAR HGB CONC 32.3 g/dL (32.0-36.0); MEAN CORPUSCULAR VOLUME 90.9 fL (81.0-99.0); MEAN PLATELET VOLUME 10.3 fL (7.9-10.8); MONOCYTES % (AUTO) 7.5 %; PLT - PLATELET COUNT 350 10^3/uL (130-450); RED BLOOD COUNT 4.81 10^6/uL (4.20-5.40); RED CELL DISTRIBUTION WIDTH 13.1 % (12.0-15.0); WHITE BLOOD COUNT 24.4 x10^3/uL (4.8-10.8)
[2023-05-19 16:45] LABS: ABNORMAL LYMPHS % (MANUAL) 0 %; BAND NEUTROPHILS % (MANUAL) 0 %
--- NOTE | 2023-05-19 16:47 | ED Physician Documentation ---
History of Present Illness - Stated complaint Stated Complaint: NEAR SYNCOPE - Chief complaint Chief Complaint: Neuro - History obtained from History obtained from: Patient - Additonal information Additional information: Patient is a 57-year-old presenting for evaluation of near syncope. Patient states that this morning she worked out in her garden for about an hour but did not drink much fluids. This afternoon she was feeling lightheaded with standing. She denies having a syncopal event. No witnessed seizure activity. Denies headache, chest pain, difficulty breathing, abdominal symptoms. Patient reports she did have lunch today. She does not take a blood thinner. She reports just feeling tired. Review of Systems Constitutional: denies: Fever Cardiac: denies: Chest pain / pressure Respiratory: denies: Dyspnea GI: denies: Abdominal Pain : denies: Dysuria Neurologic: reports: Generalized weakness. denies: Syncope, Headache PD PAST MEDICAL HISTORY - Past Medical History Cardiovascular: Hypertension, High cholesterol Endocrine/Autoimmune: Other HEENT: Macular degeneration Psych: Depression, Anxiety Musculoskeletal: Osteoarthritis, Fibromyalgia - Past Surgical History Past Surgical History: Yes Ortho: Other /[employer]: Hysterectomy - Present Medications Home Medications: Ambulatory Orders Medication Instructions Recorded Confirmed Cyclobenzaprine [Flexeril] 10 mg PO DAILY PRN 05/11/14 02/22/16 Fluticasone [Flonase] 50 mcg NS BID 05/11/14 02/22/16 Pramipexole [Mirapex] 0.125 mg PO QPM 05/11/14 02/22/16 traZODone [Desyrel] 50 mg PO QPM 05/11/14 02/22/16 Cholecalciferol (Vitamin D3) 5,000 unit PO DAILY 02/22/16 02/22/16 [Vitamin D3] Albuterol Sulf [Ventolin Hfa 1 - 2 puffs INH Q4HR PRN #1 inhaler 08/14/18 Inhaler] predniSONE [Deltasone] 10 mg PO DAILY #26 tablet 08/14/18 - Allergies Allergies/Adverse Reactions: Allergies Allergy/AdvReac Type Severity Reaction Status Date / Time Tetracyclines Allergy Rash Verified 05/19/23 15:59 - Social History Does the pt smoke?: Yes Smoking Status: Current every day smoker Does the pt drink ETOH?: Yes Does the pt have substance abuse?: No PD ED PE NORMAL - General General: Alert and oriented X 3, No acute distress, Well developed/nourished - HEENT HEENT: Atraumatic, PERRL, EOMI, Moist mucous membranes, Pharynx benign - Neck Neck: Supple, no meningeal sign, No bony TTP - Cardiac Cardiac: RRR, No murmur - Respiratory Respiratory: No respiratory distress, Clear bilaterally - Abdomen Abdomen: Soft, Non tender - Derm Derm: Warm and dry - Extremities Extremities: No edema - Neuro Neuro: Alert and oriented X 3, disassembler 2-12 intact, No motor deficit, No sensory deficit, Normal speech, Other (Normal unassisted gait) Eye Opening: Spontaneous Motor: Obeys Commands Verbal: Oriented GCS Score: 15 Results - Vitals Vitals: Vital Signs - 24 hr 05/19/23 15:59 Temperature 36.5 C Heart Rate 68 Respiratory 16 Rate Blood Pressure 157/88 H O2 Saturation 96 Oxygen O2 Source Room air - EKG (time done) 1620 EKG releavant findings:: EKG personally interpreted by author of this note. Relevant findings are: Rate 80, normal sinus rhythm, PVCs, no STEMI Rate: Rate (enter#) (80) Rhythm: NSR Ischemia: No: ST elevation c/w ischemia - Labs Labs: Laboratory Tests 05/19/23 05/19/23 16:39 16:39 WBC 24.4 H RBC 4.81 Hgb 14.1 Hct 43.7 MCV 90.9 MCH 29.3 MCHC 32.3 RDW 13.1 Plt Count 350 MPV 10.3 Neut # (Auto) Not Reportable Lymph # (Auto) Not Reportable Tensas # (Auto) Not Reportable Eos # (Auto) Not Reportable Baso # (Auto) Not Reportable Absolute Nucleated RBC Not Reportable Total Counted 100 Band Neuts % (Manual) 0 Reactive Lymphs % (Man) 6 Abnorm Lymph % (Manual) 0 Nucleated RBC % Not Reportable Neutrophils # (Manual) 17.8 H Lymphocytes # (Manual) 4.6 H Monocytes # (Manual) 1.5 H Eosinophils # (Manual) 0.2 Basophils # (Manual) 0.2 H Differential Comment MANUAL DIFFERENTIAL Platelet Estimate NORMAL (130-450,000) Platelet Morphology NORMAL APPEARANCE RBC Morph Micro Appear NORMAL APPEARANCE Sodium 135 Potassium 2.9 L Chloride 99 L Carbon Dioxide 33 H Anion Gap 3.0 L BUN 13 Creatinine 0.9 Estimated GFR (MDRD) 65 L Glucose 147 H Calcium 9.8 Total Bilirubin 0.6 AST 19 ALT 14 Alkaline Phosphatase 79 Total Protein 7.0 Albumin 4.3 Globulin 2.7 Albumin/Globulin Ratio 1.6 Lipase 31 PD Medical Decision Making - ED course Complexity details: reviewed results, re-evaluated patient, d/w patient, d/w family ED course: 1710 - Daughter is at the bedside. Not much more to add than what was already obtained from the patient. Reviewed labs including elevated WBC and a low potassium. Patient daughter states that her white count is always slightly elevated. I did explain that it is higher than it has been in the past. However patient just completed a 5-day course of prednisone that was started last weekend at [facility] for some neck issues. 1814 - Patient feeling much better. Has been ambulating to the bathroom without difficulty. Daughter states she seems to be back at her baseline. Patient is a 57-year-old female presenting for evaluation of feeling ill her syncopal. Her EKG is nonischemic. Her neuro exam is normal. No chest pain or shortness of air to suggest ACS. CBC, chemistries were obtained and reviewed. Significant for white count of 24 and potassium of 2.9. Patient tolerated p.o. potassium replacement. She was given IV fluids. Patient is feeling better here. Denies Infectious symptoms and patient's baseline white count appears to be higher than usual range. She was additionally been on prednisone recently which could also account for the elevated white count today. She is afebrile. Her abdominal exam is benign. Her chest x-ray which I reviewed does not show pneumonia. Her urine analysis is negative for infection. As she is feeling better here feel outpatient follow-up is appropriate. Patient counseled on concerning symptoms to return for. Departure - Departure Clinical Impression: Syncope, near, Hypokalemia, Leukocytosis Condition: Stable Instructions: ED Potassium Deficiency, ED Near Syncope Unkn Follow-Up: Bri Antunez PA-C [Provider Admit Priv/Credential] - Comments: You were evaluated after feeling faint. Your labs show that your white count is slightly elevated which could be related to recent steroid use. Your potassium was also low. You are feeling better after fluids which is reassuring. Please continue with staying hydrated and eating properly. I would recommend close follow-up with your primary care provider to have these rechecked. I do not see signs of infection in your lungs on your chest x-ray or in your urine. Return to ER with any new or worsening symptoms. Forms: PCP List
[2023-05-19 16:59] LABS: ALBUMIN 4.3 g/dL (3.2-5.5); ALBUMIN/GLOBULIN RATIO 1.6 (1.0-2.2); BILIRUBIN,TOTAL 0.6 mg/dL (0.2-1.0); CALCIUM 9.8 mg/dL (8.5-10.3); CREATININE 0.9 mg/dL (0.6-1.3); POTASSIUM 2.9 mmol/L (3.5-4.5)
[2023-05-19 17:00] LABS: BASOPHILS # (MANUAL) 0.2 10^3/uL (0-0.1); BASOPHILS % (MANUAL) 1 %; EOSINOPHILS # (MANUAL) 0.2 10^3/uL (0-0.7); LYMPHOCYTES # (MANUAL) 4.6 10^3/uL (1.5-3.5); LYMPHOCYTES % (MANUAL) 13 %; MONOCYTES # (MANUAL) 1.5 10^3/uL (0.0-1.0); NEUTROPHILS # (MANUAL) 17.8 10^3/uL (1.5-6.6); REACTIVE LYMPHS % (MANUAL) 6 %
[2023-05-19 17:01] LABS: DIFFERENTIAL COMMENT MANUAL DIFFERENTIAL; PLATELET ESTIMATE, MANUAL NORMAL (130-450,000) (NORMAL); PLATELET MORPHOLOGY NORMAL APPEARANCE (NORMAL); RBC MORPHOLOGY (MULTIPLE) NORMAL APPEARANCE (NORMAL)
[2023-05-19] MEDS ORDERED: POTASSIUM CHLORIDE 20 MEQ TABLET PO ONE (17:03)
--- NOTE | 2023-05-19 17:59 | XRAY Report ---
PROCEDURE: Chest 1 View X-Ray INDICATIONS: weakness TECHNIQUE: One view of the chest was acquired. COMPARISON: None. FINDINGS: Surgical changes and devices: None. Lungs and pleura: No pleural effusions or pneumothorax. Lungs are clear. Mediastinum: Mediastinal contours appear normal. Heart size is normal. Bones and chest wall: No suspicious bony lesions. Overlying soft tissues appear unremarkable. IMPRESSION: No acute cardiopulmonary process. Reviewed by: Navdeep Leavitt MD on 05/19/2023 4:58 PM AKDT Approved by: Navdeep Leavitt MD on 05/19/2023 4:58 PM AKDT Station ID: [id number]
[2023-05-19 18:22] LABS: BILIRUBIN,URINE NEGATIVE (NEGATIVE); GLUCOSE, URINE (UA) NEGATIVE (NEGATIVE); KETONES,URINE (UA) NEGATIVE (NEGATIVE); LEUKOCYTE ESTERASE, URINE NEGATIVE (NEGATIVE); NITRITE,URINE NEGATIVE (NEGATIVE); OCCULT BLOOD,URINE NEGATIVE (NEGATIVE); PROTEIN,URINE NEGATIVE (NEGATIVE); UROBILINOGEN,URINE 0.2 (NORMAL) E.U./dL (NORMAL)
[2023-05-19 18:24] LABS: CLARITY,URINE CLEAR (CLEAR)
== END 2023-05-19 18:54 | disposition home or self-care (01) ==
LOC: ED 15:55
DX: E87.6 Hypokalemia (principal); D72.829 Elevated white blood cell count, unspecified; R55 Syncope and collapse; I10 Essential (primary) hypertension; F17.200 Nicotine dependence, unspecified, uncomplicated
CPT/HCPCS: 36415; 71045; 80053; 81003; 83690; 85025; 93005; 99284; A9270; 81001; 87086

== ENCOUNTER 2023-05-25 09:12 | Outpatient (CLI) | payer MEDICARE, MEDICAID ==
--- NOTE | 2023-05-25 16:35 | XRAY Report ---
PROCEDURE: Lumbar Spine 2 View INDICATIONS: LUMBAR RADICULOPATHY TECHNIQUE: 2 views of the lumbar spine were acquired. COMPARISON: None. FINDINGS: Bones: 5 cec-cho-vcrieou vertebrae are present. There is normal bony alignment. No vertebral body compression fractures. No suspicious bony lesions. Mild multilevel degenerative changes. Facet arth rosis in the lower lumbar spine. Disc space narrowing at L4-5. The sacroiliac joints are normal. Soft tissues: Overlying bowel gas pattern is normal. No suspicious soft tissue calcifications. The aorta has atherosclerotic calcifications. The sacroiliac joints are intact. The aorta has atheroscle rotic calcifications with no aneurysmal dilatation. IMPRESSION: 1. Multilevel degenerative changes of the lumbar spine. 2. Facet arthrosis of the lumbar spine. 3. Disc space narrowing at L4-5. Reviewed by: Jose Pruett on 05/25/2023 4:33 PM PDT Approved by: Jose Pruett on 05/25/2023 4:33 PM PDT Station ID: [id number]
--- NOTE | 2023-05-25 16:40 | XRAY Report ---
PROCEDURE: Cervical Spine 2 View INDICATIONS: CERVICAL RADICULOPATHY TECHNIQUE: 2 view(s) of the cervical spine were acquired. COMPARISON: None. FINDINGS: Bones: No fractures or dislocations to the T1 level. The lateral masses of C1 appear intact on the odontoid view. No suspicious bony lesions. C5-6 and C6-7 demonstrate disc space narrowing. Soft tissues: No prevertebral soft tissue swelling. IMPRESSION: 1. No acute abnormality of the cervical spine. 2. Disc space narrowing at C5-6 and C6-7 consistent with disc disease. Reviewed by: Jose Pruett on 05/25/2023 4:38 PM PDT Approved by: Jose Pruett on 05/25/2023 4:38 PM PDT Station ID: [id number]
== END 2023-05-25 09:13 | disposition home or self-care (01) ==
LOC: DI 09:12
PROVIDERS: ATTEND Physician Assistant Medical
DX: M50.122 Cervical disc disorder at C5-C6 level with radiculopathy (principal); M47.26 Other spondylosis with radiculopathy, lumbar region; M51.16 Intervertebral disc disorders with radiculopathy, lumbar region

== ENCOUNTER 2023-08-15 07:02 | Outpatient (CLI) | payer MEDICARE, MEDICAID ==
--- NOTE | 2023-08-15 09:22 | Ultrasound Report ---
PROCEDURE: Aorta Screening INDICATIONS: SMOKER TECHNIQUE: Real time scanning was performed of the aorta and iliac arteries, with image documentatio n. COMPARISON: None. FINDINGS: Aorta: Proximal aortic diameter measures 2.7 x 2.6 cm. Mid-aorta measures 2 x 2 cm. Distal aortic diameter is 2 x 2 cm. Iliac arteries: Right common iliac artery measures 0.9 x 0.9 cm. Left common iliac artery measures 0.9 x 0.9 cm. IMPRESSION: 1. No abdominal aortic aneurysm. Proximal aorta is ectatic measuring 2.7 x 2.6 cm. Recommend repeat u ltrasound in 5 years. 2. Bilateral common iliac arteries are normal in caliber, where visualized. Recommended intervals for follow-up imaging of ectatic aortas and abdominal aortic aneurysms, per ACR consensus guidelines: 2.5-2.9 cm: 5 years 3.0-3.4 cm: 3 years 3.5-3.9 cm: 2 years 4.0-4.4 cm: 1 year 4.5-4.9 cm: 6 months + endovascular referral 5.0-5.5 cm: 3-6 months + endovascular referral Reviewed by: Baylee Roland MD on 08/15/2023 9:20 AM PDT Approved by: Baylee Roland MD on 08/15/2023 9:20 AM PDT Station ID: [id number]
--- NOTE | 2023-08-15 18:13 | CT Report ---
PROCEDURE: Low Dose Lung Cancer Screen INDICATIONS: SMOKER TECHNIQUE: A CT scan of the chest was performed. Intravenous contrast media was not administered. Images were re corded and evaluated at appropriate window settings. Reformats: axial MIP of the chest, coronal and s agittal. For radiation dose reduction, the following was used: automated exposure control, adjustment of mA and/or kV according to patient size. COMPARISON: CTA chest dated August 13, 2018. FINDINGS: Image quality: Excellent. Prior cancer history: No. Lungs and pleura: Compared to CTA chest dated August 13, 2018, no new or enlarging solid pulmonary n odules. Stable right upper lobe medial solid pulmonary nodule measuring 2 mm, benign (3/97) (). N o pleural effusion or pneumothorax. Mediastinum: Heart size is normal. Curvilinear calcification along the right ventricular wall, increa sed compared to prior CTA dated August 13, 2018 (247, 03/09). No pericardial effusion. No large vess el abnormality. No mediastinal adenopathy by size criteria. Mild calcification of the thoracic aorta . Marked coronary vessel calcifications. Chest wall and lower neck: Thyroid is unremarkable. No axillary or supraclavicular adenopathy by size . Bones: No acute fracture. No aggressive appearing lytic or blastic osseous lesion. Mild multilevel de generative changes of the spine. Upper Abdomen: Unremarkable. IMPRESSION: 1. No suspicious pulmonary nodules or consolidation. Stable right upper lobe solid pulmonary nodule m easuring 2 mm. Lung RAD: 2 - Benign. Recommendation: Continue annual screening in 12 Months with LDCT 2. Marked coronary vessel atherosclerotic calcification, notably given patient's age. 3. Curvilinear calcification along the right ventricle, increased compared to prior CTA. Findings are nonspecific and differential includes sequela of remote infarct or endomyocardial fibrosis. Correlat e with EKG and/or ECHO. Reviewed by: Baylee Roland MD on 08/15/2023 6:12 PM PDT Approved by: Baylee Roland MD on 08/15/2023 6:12 PM PDT Station ID: [id number]
== END 2023-08-15 07:03 | disposition home or self-care (01) ==
LOC: DI 07:02
PROVIDERS: ATTEND Physician Assistant Medical
DX: Z12.2 Encounter for screening for malignant neoplasm of respiratory organs (principal); F17.210 Nicotine dependence, cigarettes, uncomplicated; R91.1 Solitary pulmonary nodule; Z13.6 Encounter for screening for cardiovascular disorders; I25.10 Atherosclerotic heart disease of native coronary artery without angina pectoris